=== PATIENT | female | born 1995 | race Caucasian/White ===

== ENCOUNTER 2016-09-09 15:17 | Emergency (ER) | payer SELFPAY ==
--- NOTE | 2016-09-09 16:38 | Emergency Department Report ---
<ALEXIS WALLIS M - Last Filed: 09/09/16 19:42> ED Headache HPI - General Chief Complaint: Headache Stated Complaint: HEADACHE/DIZZINESS/BODYACHE Time Seen by Provider: 09/09/16 16:06 - History of Present Illness Allergies/Adverse Reactions: Allergies No Known Allergies Allergy (Verified 11/19/15 09:05) Home Medications: Ambulatory Orders Ferrous Sulfate [Feosol 325 MG tab] 325 mg PO BID #60 tablet 11/23/15 HYDROcodone/APAP 5-325 [[place] 5-325 mg TAB] 2 each PO Q6H PRN #30 tablet Ibuprofen [Motrin 600 MG tab] 600 mg PO Q6H #30 tablet 11/23/15 Butalb/Acetamin/Caff 50-325-40 [Fioricet] 2 each PO Q4H PRN #30 tablet 11/24/15 Naproxen [Naprosyn TAB] 500 mg PO BID PRN #30 tablet 09/09/16 ED Review of Systems ROS: Stated complaint: HEADACHE/DIZZINESS/BODYACHE Other details as noted in HPI ED Past Medical Hx - Medications Home Medications: Home Medications Medication Instructions Recorded Confirmed Last Taken Type Ferrous Sulfate [Feosol 325 MG tab] 325 mg PO BID #60 tablet 11/23/15 Unknown Rx HYDROcodone/APAP 5-325 [[place] 2 each PO Q6H PRN #30 tablet 11/23/15 Unknown Rx 5-325 mg TAB] Ibuprofen [Motrin 600 MG tab] 600 mg PO Q6H #30 tablet 11/23/15 Unknown Rx Butalb/Acetamin/Caff 50-325-40 2 each PO Q4H PRN #30 tablet 11/24/15 Unknown Rx [Fioricet] Naproxen [Naprosyn TAB] 500 mg PO BID PRN #30 tablet 09/09/16 Unknown Rx ED Course Vital Signs 09/09/16 09/09/16 09/09/16 15:32 19:01 19:49 Temperature 97.9 F Pulse Rate 93 H 78 Respiratory 16 16 18 Rate Blood Pressure 123/71 Blood Pressure 132/78 [Left] O2 Sat by Pulse 98 100 Oximetry - Reevaluation(s) Reevaluation #1: 09/09/16 19:43 PT states she is feeling better. PT is ambulatory with steady gait and asking for discharge paperwork. ED Medical Decision Making - Lab Data Result diagrams: 09/09/16 16:49 09/09/16 16:49 Critical care attestation.: If time is entered above; I have spent that time in minutes in the direct care of this critically ill patient, excluding procedure time. ED Disposition Clinical Impression: Headache Qualifiers: Headache type: tension-type Headache chronicity pattern: acute headache Intractability: not intractable Qualified Code(s): G44.209 - Tension-type headache, unspecified, not intractable Disposition: DC-01 TO HOME OR SELFCARE Condition: Stable Instructions: Tension Headache (ED), Acute Headache (ED), Near Syncope (ED) Prescriptions: Naproxen [Naprosyn TAB] 500 mg PO BID PRN #30 tablet PRN Reason: Headache Referrals: JENNIFER MAURICIO MD [Staff Physician] - 3-5 Days VANESA MENDEZ MD [Staff Physician] - 3-5 Days Forms: Accompanied Note, Work/School Release Form(ED) <JENNIFER JC - Last Filed: 09/12/16 17:07> ED Headache HPI - History of Present Illness Initial Comments: 20-year-old female past medical history none presents with complaint of episode which occurred at approximately 12 PM today while at work. Patient states she was sitting down at work when she suddenly became faint states she nearly lost consciousness. Was assisted by her coworkers. Patient states she suddenly experienced anterior throbbing intense headache. Denies any diaphoresis chest pain palpitations shortness of breath nausea vomiting or abdominal pain. Patient is currently awake alert and oriented 3 sitting calmly on examination table states that she feels headache but it has subsided since earlier this afternoon. Patient was brought in to the emergency room by her coworkers. Patient denies any upper or lower extremity paresthesias and is visibly ambulatory without any assistance. No reports of slurred speech and facial droop or extremity weakness as per patient. Patient denies any alcohol smoking or drug use Timing/Duration: other (less than 10 minutes) Quality: mild Head Injury Location: frontal Recent Head Trauma: occasional headaches Associated Symptoms: weakness ED Past Medical Hx - Past Medical History Previous Medical History?: Yes Hx Hypertension: No Hx Congestive Heart Failure: No Hx Diabetes: No Hx Deep Vein Thrombosis: No Hx Renal Disease: No Hx Sickle Cell Disease: No Hx Seizures: No Hx Asthma: No Hx COPD: No Hx HIV: No Additional medical history: Vaginal delivery x 1 - Surgical History Past Surgical History?: Yes Hx Appendectomy: Yes - Social History Smoking Status: Never Smoker Substance Use Type: Alcohol ED Physical Exam - General Limitations: No Limitations General appearance: alert, in no apparent distress - Head Head exam: Present: atraumatic, normocephalic - Eye Eye exam: Present: normal appearance, PERRL, EOMI - ENT ENT exam: Present: mucous membranes moist - Neck Neck exam: Present: normal inspection, full ROM - Respiratory Respiratory exam: Present: normal lung sounds bilaterally. Absent: respiratory distress - Cardiovascular Cardiovascular Exam: Present: regular rate, normal rhythm. Absent: systolic murmur, diastolic murmur, rubs, gallop - GI/Abdominal GI/Abdominal exam: Present: soft, normal bowel sounds - Extremities Exam Extremities exam: Present: normal inspection - Back Exam Back exam: Present: normal inspection - Neurological Exam Neurological exam: Present: alert, oriented X3, CN II-XII intact, normal gait - Expanded Neurological Exam Expanded Patient oriented to: Present: person, place, time Speech: Present: fluid speech Cranial nerves: EOM's Intact: Normal, Facial Sensation: Normal Cerebellar function: Finger to Nose: Normal, Heel to [place]: Normal, [place]: Normal Sensory exam: Upper Extremity Light Touch: Normal, Lower Extremity Light Touch: Normal Motor strength exam: RUE: 5, LUE: 5, RLE: 5, LLE: 5 DTR: bicep (R): 3+, bicep (L): 3+, tricep (R): 3+, tricep (L): 3+, knee (R): 3+ , knee (L): 3+, ankle (R): 3+, ankle (L): 3+ Best Eye Response ([place]): (4) open spontaneously Best Motor Response ([place]): (6) obeys commands Best Verbal Response ([place]): (5) oriented [place] Total: 15 - Psychiatric Psychiatric exam: Present: normal affect, normal mood - Skin Skin exam: Present: warm, dry, intact, normal color. Absent: rash ED Medical Decision Making - Lab Data Result diagrams: 09/09/16 16:49 09/09/16 16:49 - Medical Decision Making A/P: Migraine headache 1-CT head, labs, UA within normal limits 2-patient experienced significant relief of headache with one dose of Reglan 3-patient to follow up with primary care 4-case discussed with Dr. Morton ED Disposition Is pt being admited?: No Does the pt Need Aspirin: No Time of Disposition: 19:08
[2016-09-09 17:06] LABS: Basophils % (Auto) 0.4 % (0.0-1.8); Eosinophils % (Auto) 0.7 % (0.0-4.3); Hematocrit 39.5 % (30.3-42.9); Hemoglobin 13.1 gm/dl (10.1-14.3); Mean Corpuscular HGB Conc 33 % (30-34); Mean Corpuscular Hemoglobin 30 pg (28-32); Mean Corpuscular Volume 91 fl (79-97); Platelet Count 239 K/mm3 (140-440); Red Blood Count 4.36 M/mm3 (3.65-5.03); Red Cell Distribution Width 14.5 % (13.2-15.2); White Blood Count 7.1 K/mm3 (4.5-11.0)
[2016-09-09 17:24] LABS: Anion Gap 18 mmol/L; Blood Urea Nitrogen 8 mg/dL (7-17); Calcium 9.4 mg/dL (8.4-10.2); Carbon Dioxide 26 mmol/L (22-30); Chloride 101.1 mmol/L (98-107); Creatine Kinase 74 units/L (30-135); Glucose 92 mg/dL (65-100); Potassium 3.8 mmol/L (3.6-5.0); Sodium 141 mmol/L (137-145)
[2016-09-09 17:31] LABS: Bilirubin,Urine NEG (Negative); Blood,Urine NEG (Negative); Ketones,Urine NEG (Negative); Leukocyte Esterase,Urine NEG (Negative); Mucus,Urine FEW /HPF; Nitrite,Urine NEG (Negative); Protein,Urine <15 mg/dL mg/dL (Negative); RBC,Urine < 1.0 /HPF (0.0-6.0); Urobilinogen,Urine < 2.0 mg/dL (<2.0); WBC,Urine < 1.0 /HPF (0.0-6.0)
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
[2016-09-09] MEDS ORDERED: REGLAN IV ONE (18:24)
[2016-09-09] MEDS ORDERED: TYLENOL PO ONE (18:24)
[2016-09-09 19:50] VITALS: BP 132/78
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
== END 2016-09-09 19:50 | disposition home or self-care (01) ==
LOC: ED 15:17
DX: G44.209 Tension-type headache, unspecified, not intractable (principal)
CPT/HCPCS: 36415; 70450; 71020; 80048; 81001; 81025; 82550; 84484; 84703; 85025; 93005; 93010; 96374; 99284; J2765

== ENCOUNTER 2017-11-13 21:48 | Emergency (ER) | payer OTHER ==
[2017-11-13 22:26] VITALS: BP 137/76
[2017-11-14 00:29] LABS: HCG Qualitative,Urine Negative (Negative)
[2017-11-14 00:31] LABS: Bilirubin,Urine NEG (Negative); Blood,Urine SM (Negative); Color,Urine Yellow (Yellow); Mucus,Urine FEW /HPF; Protein,Urine <15 mg/dL mg/dL (Negative); Urobilinogen,Urine < 2.0 mg/dL (<2.0)
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
[2017-11-14] MEDS ORDERED: ULTRAM PO ONE (04:00)
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
== END 2017-11-14 04:54 | disposition home or self-care (01) ==
LOC: ED 21:48
DX: S43.402A Unspecified sprain of left shoulder joint, initial encounter (principal); Z90.49 Acquired absence of other specified parts of digestive tract; V87.7XXA Person injured in collision between other specified motor vehicles (traffic), initial encounter; Y93.89 Activity, other specified; Y92.488 Other paved roadways as the place of occurrence of the external cause; Y99.8 Other external cause status
CPT/HCPCS: 72100; 81001; 81025; 99284

== ENCOUNTER 2018-08-02 10:21 | Outpatient (CLI) | payer OTHER ==
[2018-08-02 12:10] VITALS: BP 110/59
--- NOTE | 2018-08-02 12:34 | Ultrasound Report ---
ULTRASOUND BIOPHYSICAL PROFILE: History: well being Technique: Transabdominal ultrasound with Doppler interrogation. 2 - breathing movements 2 - movements 2 - posture and tone 2 - Qualitative amniotic fluid volume 8 - TOTAL SCORE OF POSSIBLE 8 Heart Rate (bpm) 133
--- NOTE | 2018-08-03 08:31 | Ultrasound Report ---
OB ULTRASOUND FOLLOWUP History: well being. Technique: Transabdominal ultrasound with Doppler interrogation. COMPARISON: None at this facility. Gestation: Single Position: Cephalic Amniotic Fluid: Normal COLLINS = 9.7 cm Heart Rate: 128 BPM BPD: 9.3 cm = 38 w 0 d HC: 33.7 cm = 38 w 5 d AC: 32.0 cm = 35 w 6 d FL: 6.7 cm = 34 w 4 d HC/AC Ratio: 1.05 Cephalic Index: 83.4 Estimated Weight: 2837 grams Clinical age = 39 w 3 d EDC: 08/06/18 US Gest. Age = 36 w 6 d EDC: 08/24/18 IMPRESSION: Viable, single intrauterine as described.
== END 2018-08-02 12:28 | disposition home or self-care (01) ==
LOC: TRG 10:21
PROVIDERS: ATTEND Obstetrics & Gynecology
DX: O47.1 False labor at or after 37 completed weeks of gestation (principal); Z3A.39 39 weeks gestation of pregnancy
CPT/HCPCS: 76816; 76819

== ENCOUNTER 2018-08-05 15:07 | Outpatient (CLI) | payer OTHER ==
[2018-08-05 19:04] VITALS: BP 119/64
--- NOTE | 2018-08-05 20:09 | Ultrasound Report ---
PROCEDURE: US OB LIMITED HISTORY: POSSIBLE LEAKING FLUID, arian FINDINGS: Real-time ultrasound of the pelvis was performed. Biophysical profile was 8 of 8. cardiac activity is present at 1 48 bpm. Amniotic fluid index was 9.5 cm which is within normal limits. The fetus lies in cephalic lie. IMPRESSION: Amniotic fluid index is within normal limits This document is electronically signed by Glenn Gayle MD., August 05 2018 08:07:58 PM ET
--- NOTE | 2018-08-05 20:10 | Ultrasound Report ---
PROCEDURE: US OB BPP WO NON-STRESS TECHNIQUE: HISTORY: POSSIBLE LEAKING FLUID COMPARISONS: FINDINGS: Real-time ultrasound of the pelvis was performed. Biophysical profile was 8 of 8. cardiac activity is present at 148 bpm. Amniotic fluid index was 9.5 cm which is within normal limits. The fetus lies in cephalic lie. IMPRESSION: Biophysical profile 8 of 8 This document is electronically signed by Glenn Gayle MD., August 05 2018 08:08:22 PM ET
== END 2018-08-05 19:30 | disposition home or self-care (01) ==
LOC: TRG 15:07
PROVIDERS: ATTEND Obstetrics & Gynecology
DX: O47.1 False labor at or after 37 completed weeks of gestation (principal); Z3A.39 39 weeks gestation of pregnancy
CPT/HCPCS: 76815; 76819

== ENCOUNTER 2018-08-11 22:40 | Outpatient (CLI) | payer OTHER ==
[2018-08-11 23:17] VITALS: BP 118/59
== END 2018-08-12 00:25 | disposition home or self-care (01) ==
LOC: TRG 22:40
PROVIDERS: ATTEND Obstetrics & Gynecology
DX: O47.1 False labor at or after 37 completed weeks of gestation (principal); Z3A.40 40 weeks gestation of pregnancy
CPT/HCPCS: 59025

== ENCOUNTER 2021-09-08 13:00 | Outpatient (CLI) | payer OTHER ==
[2021-09-08] MEDS ORDERED: LACTATED RINGERS 500 ML IV ONE (13:05)
[2021-09-08 13:24] VITALS: BP 119/62
[2021-09-08] MEDS ORDERED: BETAMET ACET/BETAMET NA PH 6 MG/ML INJ 5 ML MDV IM ONE (16:48)
--- NOTE | 2021-09-08 17:45 | Ultrasound Report ---
ULTRASOUND OBSTETRIC LIMITED ULTRASOUND BIOPHYSICAL PROFILE INDICATION / CLINICAL INFORMATION: labor, 28 wks, varibale decel in office. Clinical Gestational Age (GA) in weeks, days: 27 weeks 2 days TECHNIQUE: Transabdominal and Transvaginal. COMPARISON: None available. FINDINGS: BREATHING MOVEMENT = 2 GROSS BODY MOVEMENT = 2 TONE = 2 QUALITATIVE AMNIOTIC FLUID VOLUME = 2 TOTAL BIOPHYSICAL SCORE = 8/8 HEART RATE (beats per minute): 141 AMNIOTIC FLUID INDEX (cm) = 14.8 (normal = 7-24 cm) PRESENTATION: Cephalic. ADDITIONAL FINDINGS: Estimated age by ultrasound is 27 weeks 3 days. Estimated weight is 999 g. The cervix is closed. Cervical length is 2.1 cm. IMPRESSION: 1. Biophysical Score = 8/8 2. Amniotic fluid index is normal at 14.8 cm. 3. Estimated weight is 999 g. Signer Name: Jass Us MD Signed: 09/08/2021 5:41 PM Workstation Name: [id number]
== END 2021-09-08 17:27 | disposition home or self-care (01) ==
LOC: TRG 13:00 → APU 13:02 → TRG 17:27
PROVIDERS: ATTEND Obstetrics & Gynecology
DX: O42.913 Preterm premature rupture of membranes, unspecified as to length of time between rupture and onset of labor, third trimester (principal); O36.8330 Maternal care for abnormalities of the fetal heart rate or rhythm, third trimester, not applicable or unspecified; Z3A.28 28 weeks gestation of pregnancy
CPT/HCPCS: 76816; 76817; 76819; 82731; 96372; J0702

== ENCOUNTER 2021-09-09 17:15 | Outpatient (CLI) | payer OTHER ==
[2021-09-09] MEDS ORDERED: BETAMET ACET/BETAMET NA PH 6 MG/ML INJ 5 ML MDV IM ONE (18:59)
== END 2021-09-09 18:18 | disposition home or self-care (01) ==
LOC: TRG 17:15 → APU 17:16 → TRG 18:18
PROVIDERS: ATTEND Obstetrics & Gynecology
DX: Z34.92 Encounter for supervision of normal pregnancy, unspecified, second trimester (principal); Z3A.27 27 weeks gestation of pregnancy
CPT/HCPCS: 96372; J0702

== ENCOUNTER 2021-10-08 07:44 | Outpatient (CLI) | payer OTHER ==
[2021-10-08 08:18] VITALS: BP 106/56
[2021-10-08 09:08] LABS: Bacteria,Urine 3+ /HPF (Negative); Mucus,Urine FEW /HPF; WBC,Urine < 1.0 /HPF (0.0-6.0)
[2021-10-08 09:18] LABS: Color,Urine Yellow (Yellow)
--- NOTE | 2021-10-08 09:35 | Ultrasound Report ---
ULTRASOUND OBSTETRIC LIMITED ULTRASOUND OB TRANSVAGINAL INDICATION / CLINICAL INFORMATION: cervical lenght. TECHNIQUE: Transabdominal and transvaginal ultrasound imaging. COMPARISON: 09/08/2021 FINDINGS: HEART RATE (beats per minute): 135 AMNIOTIC FLUID INDEX (cm) = not measured PRESENTATION: Cephalic. ADDITIONAL FINDINGS: The cervix is closed measures 5 cm in length. IMPRESSION: Cephalic presentation. The cervix measures 5 cm in length. Signer Name: Willian Pemberton Jr, MD Signed: 10/08/2021 9:30 AM Workstation Name: [id number]
[2021-10-08] MEDS ORDERED: LACTATED RINGERS 1,000 ML ONE (09:48)
[2021-10-08] MEDS ORDERED: TERBUTALINE 1 MG/1 ML INJ SUB-Q SCH (11:00)
[2021-10-08] MEDS ORDERED: LACTATED RINGERS 1,000 ML IV ONE (12:00)
== END 2021-10-08 12:10 | disposition home or self-care (01) ==
LOC: TRG 07:44 → APU 07:45 → TRG 12:10
PROVIDERS: ATTEND Obstetrics & Gynecology
DX: O47.03 False labor before 37 completed weeks of gestation, third trimester (principal); Z3A.31 31 weeks gestation of pregnancy
CPT/HCPCS: 36415; 59025; 76815; 76817; 81001; 82731; J7120